=== PATIENT | male | born 1960 | race Caucasian/White ===

== ENCOUNTER 2022-10-20 06:27 | Day surgery (SDC) | payer BC ==
[~2022-10-20] VITALS: Ht 185.4 cm; Wt 116.6 kg
[2022-10-20] VITALS (7 sets, daily range): BP systolic 106–131; BP diastolic 75–87
[~2022-10-20 06:27] MED LIST: ACET-2319 PO; ATOR20TA66 PO; EMPA25TA PO; MUPI22OI30 BOTHNARES; PIOG1TAB21 PO; SLEEP PO; ZINC50TA15 PO; cefazolin 2gm/D5W 100mL 100 ML IV ONE; famotidine 20mg tablet PO ONE; ringers solution, lacted 1,000 ML IV SCH
[2022-10-20] MEDS ORDERED: fentaNYL/PF 50MCG/1 ML 2ML syringe ONE (07:54)
[2022-10-20] MEDS ORDERED: midazolam 1 mg/ML 2ml injection ONE (07:54)
[2022-10-20] MEDS ORDERED: dexamethasone sod phosphate 4mg/ml inj. ONE (07:55)
[2022-10-20] MEDS ORDERED: ROPIVAcaine 0.5% (5mg/ml) 30ml vial ONE ×2 (07:55)
[2022-10-20] MEDS ORDERED: propofol inj 20 ML IV ONE (07:55)
[2022-10-20] MEDS ORDERED: LIDOcaine 2% (20mg/ml) 5ml vial ONE (07:56)
[2022-10-20] MEDS ORDERED: ondansetron/PF 4mg/2ml inj ONE (07:56)
[2022-10-20] MEDS ORDERED: hydrALAZINE 20mg/ml inj. IV PRN (08:00)
[2022-10-20] MEDS ORDERED: labetalol 20mg/4ml (5mg/ml) syringe IV PRN (08:00)
[2022-10-20] MEDS ORDERED: morphine 2 MG/ML inj. syringe IV PRN (08:00)
[2022-10-20] MEDS ORDERED: ondansetron/PF 4mg/2ml inj IV PRN (08:00)
[2022-10-20] MEDS ORDERED: fentaNYL/PF 50MCG/1 ML 2ML syringe IV PRN ×2 (08:00)
[2022-10-20] MEDS ORDERED: ringers solution, lacted 1,000 ML IV SCH (08:00)
[2022-10-20] MEDS ORDERED: morphine 4 MG/ML inj SYRINge IV PRN (08:00)
[2022-10-20] MEDS ORDERED: sevoflurane 250ml liquid IH ONE (08:05)
[2022-10-20] MEDS ORDERED: acetaminophen 1,000mg/100ml IV 100 ML IV ONE (08:22)
[2022-10-20] MEDS ORDERED: ketorolac trometh. 30mg/ml inj. ONE (08:22)
[2022-10-20] MEDS ORDERED: vancomycin 1,000mg inj ONE (09:56)
[2022-10-20] MEDS ORDERED: bacitracin 15gm ointment TP ONE (10:19)
--- NOTE | 2022-10-20 10:29 | NUR ---
Received from OR via [facility], accompanied by Anesthesiologist and report given by ARRON Anesthesiologist. PATIENT WAKING UP, NO S/S OF PAIN, V/S WNL, SCD ON, 20G TO LEFT HAND, drsg to right forearm C/D/I with sling and ice pack. Addendum: 10/20/22 at 1055 by Tristian Vallejo RN Amended: Links added.
--- NOTE | 2022-10-20 11:39 | NUR ---
ALL DISCHARGE CRITERIA HAS BEEN MET. VSS, PAIN AT A TOLERABLE LEVEL, ABLE TO SAFELY AMBULATE AND TRANSFER SELF. IV TAKEN OUT WITHOUT ANY COMPLICATIONS. ALL DISCHARGE INSTRUCTIONS COVERED WITH PATIENT AND ALL QUESTIONS ANSWERED. PATIENT TAKEN OUT VIA WHEELCHAIR WITH ALL BELONGINGS TO PERSONAL VEHICLE WHERE FAMILY DROVE PATIENT HOME. Addendum: 10/20/22 at 1152 by Tristian Vallejo RN Amended: Links added.
== END 2022-10-20 11:39 | disposition home or self-care (01) ==
LOC: PAS 06:27
PROVIDERS: ATTEND Orthopaedic Surgery
DX: S52.571A Other intraarticular fracture of lower end of right radius, initial encounter for closed fracture (principal); E11.9 Type 2 diabetes mellitus without complications; G89.18 Other acute postprocedural pain; E66.9 Obesity, unspecified; Z68.33 Body mass index [BMI] 33.0-33.9, adult; Z79.899 Other long term (current) drug therapy; Z98.890 Other specified postprocedural states; Z83.3 Family history of diabetes mellitus; W17.89XA Other fall from one level to another, initial encounter; Y93.89 Activity, other specified; Y92.89 Other specified places as the place of occurrence of the external cause; Y99.8 Other external cause status
CPT/HCPCS: 25608; 64417; 82948; 93005; A6222; C1713; J0131; J0690; J1100; J1885; J2250; J2405; J2704; J2795; J3010; J3370; J3490; J7030; J7120; Z7506; Z7508; Z7512; A4215; A4565; A4618; A6449; A7000